=== PATIENT | male | born 1990 | race African-American/Black ===

== ENCOUNTER 2022-06-11 00:14 | Emergency (ER) | payer OTHER ==
[~2022-06-11] VITALS: Ht 185.4 cm; Wt 102.0 kg
[2022-06-11 00:23] VITALS: BP 125/85
== END 2022-06-11 06:46 | disposition home or self-care (01) ==
LOC: EDBD 00:22 → ER 00:22
DX: F19.129 Other psychoactive substance abuse with intoxication, unspecified (principal); R45.1 Restlessness and agitation; R00.0 Tachycardia, unspecified; Z20.822 Contact with and (suspected) exposure to COVID-19
CPT/HCPCS: 82962; 93005; 99284; C9803; U0003; U0005